=== PATIENT | male | born 1930 | race Caucasian/White ===

== ENCOUNTER 2018-11-08 10:28 | Emergency (ER) | payer MEDICARE, BC ==
[2018-11-08 10:49] VITALS: RESP 18; TEMP 97.8
[2018-11-08] MEDS ORDERED: traMADol 50 MG TAB PO STA (11:09)
--- NOTE | 2018-11-08 11:19 | ED ---
General Adult HPI - General Chief complaint: Extremity Problem,Nontraumatic Stated complaint: Lt side, leg pain Time Seen by Provider: 11/08/18 11:03 Source: patient, RN notes reviewed Mode of arrival: ambulatory Limitations: no limitations - History of Present Illness Initial comments: 88-year-old male presents emergency Department chief complaint left leg pain. Patient states started bothering him while [place] the mall yesterday. Patient states pain continued today and felt that it should be evaluated. Patient states he did not fall. Patient states pain is worse with movement. Patient denies any swelling or paresthesias of his leg. Patient denies any bowel bladder incontinence or retention. Patient states he does have known back issues in which she had an MRI years ago and was told he had severe degenerative changes. Patient states he has no loss of function of his leg no decreased strength no discoloration. Patient states that he otherwise has no other complaints did not try any Tylenol or Motrin. - Related Data Home Medications Medication Instructions Recorded Confirmed Multivitamins, Thera [Multivitamin 1 tab PO DAILY 11/08/18 11/08/18 (formulary)] Saw [place] 500 mg PO DAILY 11/08/18 11/08/18 Allergies Allergy/AdvReac Type Severity Reaction Status Date / Time meperidine HCl [From Demerol] Allergy Anaphylaxis Verified 01/08/16 16:05 acetaminophen AdvReac Unknown Verified 11/08/18 11:58 [From Tylenol PM] diphenhydramine AdvReac Unknown Verified 11/08/18 11:58 [From Tylenol PM] Review of Systems ROS Statement: Those systems with pertinent positive or pertinent negative responses have been documented in the HPI. ROS Other: All systems not noted in ROS Statement are negative. Past Medical History Past Medical History: GERD/Reflux, Osteoarthritis (OA) Additional Past Medical History / Comment(s): ibs History of Any Multi-Drug Resistant Organisms: None Reported Past Surgical History: Hernia Repair, Orthopedic Surgery Additional Past Surgical History / Comment(s): right knee; right hand; abd surgery; Past Psychological History: No Psychological Hx Reported Smoking Status: Former smoker Past Alcohol Use History: None Reported Past Drug Use History: None Reported General Exam General appearance: alert, in no apparent distress Head exam: Present: atraumatic, normocephalic, normal inspection Eye exam: Present: normal appearance, PERRL, EOMI. Absent: scleral icterus, conjunctival injection, periorbital swelling ENT exam: Present: mucous membranes moist Neck exam: Present: normal inspection, full ROM. Absent: tenderness, meningismus, lymphadenopathy Respiratory exam: Present: normal lung sounds bilaterally. Absent: respiratory distress, wheezes, rales, rhonchi, stridor Cardiovascular Exam: Present: regular rate, normal rhythm, normal heart sounds. Absent: systolic murmur, diastolic murmur, rubs, gallop, clicks GI/Abdominal exam: Present: soft, normal bowel sounds. Absent: distended, tenderness, guarding, rebound, rigid Extremities exam: Present: other (Lower extremity strength equal bilaterally, neurovascular intact with equal pulses, equal color and warmth mild tenderness to left hip region) Back exam: Present: full ROM, tenderness (Left lower lumbar, left buttocks region). Absent: paraspinal tenderness, vertebral tenderness Neurological exam: Present: alert, oriented X3, CN II-XII intact, reflexes normal. Absent: motor sensory deficit Skin exam: Present: warm, dry, intact, normal color. Absent: rash Course Vital Signs 11/08/18 11/08/18 10:45 13:08 Temperature 97.8 F Pulse Rate 71 74 Respiratory 18 18 Rate Blood Pressure 159/82 166/82 O2 Sat by Pulse 99 96 Oximetry Medical Decision Making - Medical Decision Making 88-year-old male presented for left leg pain. Patient did have x-rays which showed degenerative changes conservative possible fracture. Patient had CT no definite fracture no point tenderness over the area of concern. Patient has arthritic pain of the left leg from his hip also lumbar to The. Patient will be discharged with follow-up with orthopedics. Return parameters were discussed. - Lab Data Lab Results 11/08/18 Range/Units 13:04 Urine Color Light Yellow Urine Appearance Clear (Clear) Urine pH 6.0 (5.0-8.0) Ur Specific [place] 1.006 (1.001-1.035) Urine Protein Negative (Negative) Urine Glucose (UA) Negative (Negative) Urine Ketones Negative (Negative) Urine Blood Negative (Negative) Urine Nitrite Negative (Negative) Urine Bilirubin Negative (Negative) Urine Urobilinogen <2.0 (<2.0) mg/dL Ur Leukocyte Esterase Negative (Negative) Disposition Clinical Impression: Arthralgia of hip, left, Leg pain, left, Lumbar radiculopathy, acute Disposition: HOME SELF-CARE Condition: Stable Instructions: Osteoarthritis (ED), Leg Pain (ED) Additional Instructions: Please return to the Emergency Department if symptoms worsen or any other concerns. Is patient prescribed a controlled substance at d/c from ED?: No Referrals: Fred Machado III, MD [Primary Care Provider] - 1-2 days Michael Capone MD [Medical Doctor] - 1-2 days Time of Disposition: 13:50
--- NOTE | 2018-11-08 11:52 | US ---
EXAMINATION TYPE: US venous doppler duplex LE LT DATE OF EXAM: 11/08/2018 11:09 AM COMPARISON: NONE CLINICAL HISTORY: Pain. Left leg pain SIDE PERFORMED: Left TECHNIQUE: The lower extremity deep venous system is examined utilizing real time linear array sonog apoorva with graded compression, doppler sonography and color-flow sonography. VESSELS IMAGED: External Iliac Vein (EI) Common Femoral Vein Deep Femoral Vein Greater Saphenous Vein * Femoral Vein Popliteal Vein Small Saphenous Vein * Proximal Calf Veins (* superficial vessels) Left Leg: Negative for DVT IMPRESSION: 1. No diagnostic evidence of DVT as visualized.
--- NOTE | 2018-11-08 12:02 | XR ---
EXAMINATION TYPE: XR Hip LT and AP Pelvis DATE OF EXAM: 11/08/2018 COMPARISON: NONE HISTORY: Pain TECHNIQUE: A single AP view of the pelvis is obtained. Two views of the left hip are obtained. FINDINGS: There is a diffuse mixed sclerosis and lucency of the right hemipelvis. There is expansion . Differential diagnosis includes pad disc disease. Metastatic disease not excluded. SI joints symmetric. Sacrum appears intact. There is severe arthropathy of the right hip and moderate arthropathy of the left hip. There is slight buckling of the left femoral neck. IMPRESSION: 1. Paget's disease favored over metastases correlate clinically. 2. Arthropathy of the hips bilaterally greater on the right. However, there is slight buckling of the upper cortical margin of the left femoral neck for which a CT scan is suggested to exclude fracture.
--- NOTE | 2018-11-08 12:47 | CT ---
EXAMINATION TYPE: CT hip LT wo con DATE OF EXAM: 11/08/2018 COMPARISON: X-ray 11/08/2018 HISTORY: Left sided hip pain CT DLP: 342.9 mGycm Automated exposure control for dose reduction was used. FINDINGS: There is left SI joint degenerative change lower dorsal spine moderate concentric joint space. There is hypertrophic spurring involving the femoral head. Femoral neck appears to be intact with no defini te acute fracture. However, there is a lucency along the lateral margin of the greater trochanter on axial image 32 and 33. Portions of the right hemipelvis demonstrate the previous x-ray findings suggestive of Paget's diseas e. Calcifications in the scrotal sac noted. Small hydrocele noted. IMPRESSION: 1. Left hip arthropathy. There is a tiny lucency on axial image 33 and 32 along the greater trochante r of the left hip which could represent a nondisplaced hairline fracture. Correlate with point tender ness. 2. Paget's disease favored over metastasis involving the right hemipelvis.
[2018-11-08 13:09] VITALS: BP 166/82; PULSE 74
[2018-11-08 13:43] LABS: Appearance,Urine Clear (Clear); Bilirubin,Urine Negative (Negative); Blood,Urine Negative (Negative); Color,Urine Light Yellow; Glucose,Urine (UA) Negative (Negative); Ketones,Urine Negative (Negative); Leukocyte Esterase,Urine Negative (Negative); Nitrite,Urine Negative (Negative); Protein,Urine Negative (Negative); Specific Gravity,Urine 1.006 (1.001-1.035); Urobilinogen,Urine <2.0 mg/dL (<2.0)
[2018-11-08] MEDS ORDERED: traMADol 50 MG STARTER PACK 3 TAB BTL PO STA (13:50)
== END 2018-11-08 14:08 | disposition home or self-care (01) ==
LOC: EC 10:28
DX: M54.16 Radiculopathy, lumbar region (principal); M25.552 Pain in left hip; Z87.891 Personal history of nicotine dependence; Z88.5 Allergy status to narcotic agent; Z88.6 Allergy status to analgesic agent; Z88.8 Allergy status to other drugs, medicaments and biological substances
CPT/HCPCS: 73502; 81003; 99284

== ENCOUNTER 2019-08-09 20:08 | Emergency (ER) | payer MEDICARE, BC ==
[2019-08-09 20:31] VITALS: BP 157/78; PULSE 78; RESP 16; TEMP 98.4
[2019-08-09] MEDS ORDERED: LIDOCAINE 1% INJ 10MG/ML (20 ML MDV) SQ ONE (20:56)
[2019-08-09] MEDS ORDERED: DIPH,PERTUS(ACELL)TETVAC-LF 0.5 ML VIAL IM ONE (21:17)
--- NOTE | 2019-08-09 21:19 | XR ---
EXAMINATION TYPE: XR hand complete LT DATE OF EXAM: 08/09/2019 COMPARISON: NONE HISTORY: Pain TECHNIQUE: 3 views FINDINGS: There is moderate narrowing and spurring at the first carpometacarpal joint. There is no ev idence of metacarpal fractures. There are no erosions. IP joint spaces are fairly normal. There is no subluxation. 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 No fracture seen. No sign of a foreign body. Fifth metacarpal appears intact.
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
== END 2019-08-09 21:53 | disposition home or self-care (01) ==
LOC: EC 20:08
DX: S61.412A Laceration without foreign body of left hand, initial encounter (principal); Z23 Encounter for immunization; K21.9 Gastro-esophageal reflux disease without esophagitis; Z88.5 Allergy status to narcotic agent; Z88.6 Allergy status to analgesic agent; Z88.8 Allergy status to other drugs, medicaments and biological substances; Z87.891 Personal history of nicotine dependence; W22.8XXA Striking against or struck by other objects, initial encounter; Y93.55 Activity, bike riding
CPT/HCPCS: 73130; 90715; 99283; 12002; 90471; J2001